=== PATIENT | male | born 1990 | race African-American/Black ===

== ENCOUNTER 2017-12-07 08:00 | Emergency (ER) | payer SELFPAY ==
[~2017-12-07] VITALS: Ht 162.6 cm; Wt 95.5 kg
[~2017-12-07 08:00] MED LIST: Z.0.UNKNOWN
[2017-12-07 08:02] VITALS: BP 136/94; PULSE 96; RESP 16; TEMP 98.9; O2SAT 0; O2SAT 100
[2017-12-07] MEDS ORDERED: TETANUS/DIPHTHERIA TOXOID ADULT 0.5 ML VIAL IM ONE (08:15)
--- NOTE | 2017-12-07 08:21 | PD ---
HPI Chief Complaint: Laceration/Skin Injury Time Seen by Provider: 08:07 Travel History International Travel<30 days: No Contact w/Intl Traveler<30days: No Traveled to known affect area: No History of Present Illness HPI Patient is a 27-year-old male presenting to the emergency department for evaluation of a laceration to his left upper shoulder and shoulder pain. Patient states he was repairing his shower when he got out tripped and fell onto his left side. He fell onto nails on his hammer sustaining a laceration. Initially he could move his left shoulder however after about 20 minutes he could move it anymore. He reports 7 out of 10 pain, aching and sore, constant. Patient denies any head injury or loss of consciousness, shortness of breath, chest pain, dizziness. Patient's tetanus vaccine is not up-to-date. Patient denies any significant past medical history. [facility] Past Medical History Medical History: Denies Significant Hx Tetanus Vaccination: Unknown Influenza Vaccination: No Past Surgical History Surgical History: No Previous Surgery Social History Alcohol Use: Yes (weekly) Tobacco Use: No Substance Use: No Allergies-Medications (Allergen,Severity, Reaction): Coded Allergies: Penicillins (Verified Allergy, Severe, closes throat up, 12/07/17) Uncoded Allergies: unknown (Allergy, Severe, 08/26/11) Reported Meds & Prescriptions Reported Meds & Active Scripts Active No Active Prescriptions or Reported Medications Review of Systems Except as stated in HPI: all other systems reviewed are Neg Musculoskeletal: Positive: Limited ROM, Pain Skin: Positive Other (Laceration) Physical Exam Narrative GENERAL: Well-developed, well-nourished, alert -[place] male. Presenting in no acute distress. SKIN: Warm and dry. 1 cm laceration to the posterior left shoulder. HEAD: Atraumatic. Normocephalic. EYES: Pupils equal and round. No scleral icterus. No injection or drainage. ENT: No nasal bleeding or discharge. Mucous membranes pink and moist. NECK: Trachea midline. No JVD. CARDIOVASCULAR: Regular rate and rhythm. RESPIRATORY: No accessory muscle use. Clear to auscultation. Breath sounds equal bilaterally. GASTROINTESTINAL: Abdomen soft, non-tender, nondistended. Hepatic and splenic margins not palpable. MUSCULOSKELETAL: Extremities without clubbing, cyanosis, or edema. No obvious deformities. 2+ radial pulse, brisk less than 3 second capillary refill. Patient cannot abduct his arm. He can slightly rotate the shoulder NEUROLOGICAL: Awake and alert. No obvious cranial nerve deficits. Motor grossly within normal limits. Five out of 5 muscle strength in the arms and legs. Normal speech. PSYCHIATRIC: Appropriate mood and affect; insight and judgment normal. Data Data Last Documented VS Vital Signs Date Time Temp Pulse Resp B/P (MAP) Pulse Ox O2 Delivery O2 Flow Rate FiO2 12/07/17 08:02 98.9 96 16 136/94 (108) 100 Orders Orders Shoulder, Complete (>2vws) (12/07/17 ) Tetanus/Diphtheria Tox Adult (Tetanus/Di (12/07/17 08:15) Ibuprofen (Motrin) (12/07/17 09:15) MDM Medical Decision Making Medical Screen Exam Complete: Yes Emergency Medical Condition: Yes Interpretation(s) Last Impressions Shoulder X-Ray 12/07/17 0000 Signed Impressions: CONCLUSION: Surgical clips otherwise negative. Vital Signs Date Time Temp Pulse Resp B/P (MAP) Pulse Ox O2 Delivery O2 Flow Rate FiO2 12/07/17 08:02 98.9 96 16 136/94 (108) 100 Differential Diagnosis Fracture versus sprain versus strain versus tear versus laceration versus contusion versus other Narrative Course Patient is well-appearing 27-year-old male presenting for evaluation of shoulder pain and a laceration. Patient is neurovascularly intact, please see procedure report for laceration repair. Patient is limited range of motion to left arm. X-ray ordered and pending. Tetanus vaccine will be updated today. X -ray of the left shoulder is negative for acute abnormality. Patient was advised on findings. He was encouraged to continue gentle range of motion exercises, apply warm heat to affected area, avoid immobilization to prevent frozen shoulder. Patient was advised the jelani need to be removed in 1 week. He can return to emergency department or follow-up with primary doctor. Patient was encouraged return immediately for any new or worsening symptoms. Patient verbalized understanding of instructions. Patient stable for discharge. Procedures Procedure Narrative LACERATION LOCATION: Left shoulder LENGTH: 1 cm NUMBER OF STITCHES/JELANI: 3 jelani REPAIR: The area of the laceration was prepped with Betadine and sterilely draped. The wound was copiously irrigated and explored without evidence of foreign body, tendon injury or neurovascular injury. The wound was closed using jelani. This was a 1 layer repair. A sterile dressing was applied. The patient was advised to keep the dressing clean and dry. Patient tolerated the procedure well. Diagnosis Primary Impression: Laceration of shoulder Qualified Codes: S41.012A - Laceration without foreign body of left shoulder, initial encounter Additional Impression: Shoulder pain, acute Qualified Codes: M25.512 - Pain in left shoulder Referrals: [facility] Primary Care Physician Patient Instructions: General Instructions, Shoulder Pain (ED), Shoulder Sprain (ED), Staple Care (ED) Additional Instructions: Keep jelani clean and dry, they will need to be removed in 1 week. He can return to emergency department follow-up with your primary doctor Take ibuprofen and Flexeril as needed as directed for shoulder pain Apply warm heat to affected area, continue gentle range of motion exercise, avoid exacerbating activities, avoid bed rest Return to emergency department immediately for any new worsening symptoms Med/Other Pt SpecificInfo: Prescription(s) given Scripts Cyclobenzaprine (Flexeril) 10 Mg Tab 10 MG PO TID Y for MUSCLE SPASM, #30 TAB 0 Refills Prov: Lacie Wright 12/07/17 Ibuprofen (Ibuprofen) 800 Mg Tab 800 MG PO Q6HR Y for PAIN, #40 TAB 0 Refills Prov: Lacie Wright 12/07/17 Disposition: 01 DISCHARGE HOME Condition: Stable Lacie Wright Dec 07, 2017 08:21
[2017-12-07] MEDS ORDERED: IBUPROFEN 800 MG TAB PO ONE (09:15)
--- NOTE | 2017-12-07 09:16 | RADRPT ---
EXAM DATE: 12/07/2017 8:59 AM EDT AGE/SEX: 27 years / Male INDICATIONS: Left shoulder pain after fall onto a nail today. CLINICAL DATA: This is the patient's initial encounter. Patient reports that signs and symptoms have been present for 1 day and indicates a pain score of 6/10. MEDICAL/SURGICAL HISTORY: None. None. COMPARISON: No prior exams available for comparison. FINDINGS: Previous surgery. Anatomic alignment without fracture. No foreign body. No air. CONCLUSION: Surgical clips otherwise negative. Electronically signed by: Noe Long MD 12/07/2017 9:15 AM EDT
[2017-12-07] MEDS ORDERED: IBUP1TAB7 PO (09:33)
[2017-12-07] MEDS ORDERED: CYCL10TA PO (09:33)
== END 2017-12-07 09:48 | disposition home or self-care (01) ==
LOC: NEPD 08:00
DX: S41.012A Laceration without foreign body of left shoulder, initial encounter (principal); W01.118A Fall on same level from slipping, tripping and stumbling with subsequent striking against other sharp object, initial encounter; Z23 Encounter for immunization
CPT/HCPCS: 12001; 73030; 90471; 90714

== ENCOUNTER 2017-12-13 18:05 | Emergency (ER) | payer OTHER ==
[~2017-12-13] VITALS: Ht 172.7 cm; Wt 100.0 kg
[~2017-12-13 18:05] MED LIST changes: +CYCL10TA PO; +IBUP1TAB7 PO; -Z.0.UNKNOWN
[2017-12-13 18:11] VITALS: BP 132/78; PULSE 74; RESP 16; TEMP 98.2; O2SAT 97
--- NOTE | 2017-12-13 18:19 | PD ---
HPI Chief Complaint: Wound/Suture/Staple Re-Check Time Seen by Provider: 18:15 Travel History International Travel<30 days: No Contact w/Intl Traveler<30days: No Traveled to known affect area: No History of Present Illness HPI 27-year-old male presents to the emergency department requesting staple removal from his left upper back/shoulder area. Jelani have been in since December 07. He was told to return tomorrow, but he is not able to so he came in today. He denies fever, vomiting. Says the area is itchy. Denies that the area is painful. Denies drainage from the wound site. Symptoms are mild in severity. No known aggravating or relieving factors. No primary care provider. Allergies to penicillins. Has no other medical complaints. No other modifying factors or associated signs and symptoms. PFSH Past Medical History ?: Not Social History Alcohol Use: Yes (weekly) Tobacco Use: No Substance Use: No Allergies-Medications (Allergen,Severity, Reaction): Coded Allergies: Penicillins (Verified Allergy, Severe, closes throat up, 12/13/17) Uncoded Allergies: unknown (Allergy, Severe, 08/26/11) Reported Meds & Prescriptions Reported Meds & Active Scripts Active Flexeril (Cyclobenzaprine HCl) 10 Mg Tab 10 Mg PO TID PRN Ibuprofen 800 Mg Tab 800 Mg PO Q6HR PRN Review of Systems Except as stated in HPI: all other systems reviewed are Neg Physical Exam Narrative GENERAL: Well-nourished, well-developed black male patient, in no acute distress SKIN: Warm and dry. Left upper back/shoulder area with well approximated laceration with jelani intact; without erythema, edema, drainage. No signs of infection. HEAD: Atraumatic. Normocephalic. EYES: Pupils equal and round. No scleral icterus. No injection or drainage. ENT: Mucosa pink and moist. Airway patent. NECK: Trachea midline. CARDIOVASCULAR: Regular rate. RESPIRATORY: No accessory muscle use. GASTROINTESTINAL: Rounded. MUSCULOSKELETAL: No obvious deformities. No clubbing. No cyanosis. No edema. NEUROLOGICAL: Awake and alert. Oriented 3. No obvious cranial nerve deficits. Motor grossly within normal limits. Normal speech. PSYCHIATRIC: Appropriate mood and affect; insight and judgment normal. Data Data Last Documented VS Vital Signs Date Time Temp Pulse Resp B/P (MAP) Pulse Ox O2 Delivery O2 Flow Rate FiO2 12/13/17 18:11 98.2 74 16 132/78 (96) 97 Orders Orders Ed Discharge Order (12/13/17 18:19) MDM Medical Decision Making Medical Screen Exam Complete: Yes Emergency Medical Condition: Yes Medical Record Reviewed: Yes Differential Diagnosis Encounter for staple removal, wound recheck, medical clearance Narrative Course 27-year-old male presents for staple removal of laceration to his left upper back/shoulder area. No signs of infection. Jelani removed. Instructed patient to follow up with primary care provider. Patient verbalizes understanding and agreement with treatment plan. Patient is medically cleared and stable for discharge. Discussed reasons to return to the emergency department. Patient agrees with treatment plan. The patients vital signs are stable and the patient is stable for outpatient follow-up and treatment. Patient discharged home, stable and in no acute distress. Diagnosis Primary Impression: Encounter for staple removal Referrals: [facility] Primary Care Physician Patient Instructions: Acute Wound Care (DC), Acute Wounds (ED), General Instructions Additional Instructions: Follow-up with primary care provider Follow-up at [facility] to establish primary care Return to the emergency department immediately if worsening of some Med/Other Pt SpecificInfo: No Change to Meds, No Meds Exist/No RX given Disposition: 01 DISCHARGE HOME Condition: Stable Ani Rose Dec 13, 2017 18:19
== END 2017-12-13 18:37 | disposition home or self-care (01) ==
LOC: NEPK 18:05
DX: S21.212D Laceration without foreign body of left back wall of thorax without penetration into thoracic cavity, subsequent encounter (principal); X58.XXXD Exposure to other specified factors, subsequent encounter; Z79.899 Other long term (current) drug therapy; Z88.0 Allergy status to penicillin
CPT/HCPCS: 99281